=== PATIENT | female | born 1960 ===

== ENCOUNTER → 2024-04-26 | Outpatient (CLI) | payer BC, SELFPAY ==
--- NOTE | 2024-04-26 14:00 | XR_ITS ---
EXAMINATION: PET/CT FUSION SKULL TO THIGH EXAM DATE AND TIME: April 26, 2024 1452 hours INDICATIONS: Diagnosis numerous pulmonary nodules up to 11 mm in the right upper lobe on outside CT chest examination, staging CTDI:vol (mGy) 6.83 DLP: (mGycm) 623.84 PROCEDURE: 17.2 mCi FDG was administered intravenously To allow for distribution and uptake of radiotracer, the patient was allowed to rest quietly in a shielded room. Imaging was performed on an integrated 16-slice PET/CT scanner, with scanning from the skull base to the mid thigh. Serum blood glucose at the time of the injection was measured 191 mg/dL. CT scanning was performed without oral or intravenous contrast material. FINDINGS: Head and Neck: There is no lincoln hypermetabolism in the neck. The visualized portions of the brain are normal in appearance on CT. Chest: Non hypermetabolic 4.5 mm pulmonary nodule right upper lobe image 83, 1 mm pulmonary nodule right upper lobe image 92, 9 mm pulmonary nodule right upper lobe image 93 4 mm pulmonary nodule right upper lobe image 94 Abdomen and Pelvis: There is no lincoln hypermetabolism in retroperitoneal or pelvic chains. The spleen is normal in size and FDG avidity. Musculoskeletal: Marrow uptake is within normal range. IMPRESSION: Non hypermetabolic pulmonary nodules as above, recommend continued 6 month follow-up CT chest without contrast
== END | disposition home or self-care (01) ==
PROVIDERS: PCP Physician Assistant; Referring Provider Physician Assistant; Visit Provider Physician Assistant
DX: R91.8 Other nonspecific abnormal finding of lung field (principal)
CPT/HCPCS: 78815; A9552